=== PATIENT | male | born 1970 | race Caucasian/White ===

== ENCOUNTER → 2020-03-09 | Outpatient (CLI) | payer OTHER ==
[~2020-03-09] MED LIST: ADULT LOW DOSE81 MG PO; DICLOFENAC SODI75 MG PO; FAMOTIDINE20 MG PO; HYDROCHLOROTHIA50 MG PO; LOSARTAN POTAS100 MG PO; METFORMIN HCL500 M2 PO; METOPROLOL TART25 MG PO; PAIN RELIEVER650 MG PO; PANTOPRAZOLE SO20 MG PO; PRAVASTATIN SOD80 MG PO; VIAGRA100 MG PO; VITAMIN D21250 MCG PO
== END ==
LOC: KOH-I 15:09
DX: M77.31 Calcaneal spur, right foot (principal)
CPT/HCPCS: 73630; 73650

== ENCOUNTER → 2020-04-06 | Outpatient (CLI) | payer OTHER | LOC: KOH-I 13:00 | DX: Z01.818 Encounter for other preprocedural examination (principal); M77.31 Calcaneal spur, right foot; M76.61 Achilles tendinitis, right leg; M77.51 Other enthesopathy of right foot and ankle | CPT/HCPCS: 73718; 93926 ==

== ENCOUNTER → 2020-06-22 | Outpatient (CLI) | payer OTHER | LOC: OPSV2 08:00 | DX: Z01.812 Encounter for preprocedural laboratory examination (principal); M21.6X1 Other acquired deformities of right foot; M67.971 Unspecified disorder of synovium and tendon, right ankle and foot; S92.001A Unspecified fracture of right calcaneus, initial encounter for closed fracture | CPT/HCPCS: 36415; 83036 ==

== ENCOUNTER → 2020-06-30 | Day surgery (SDC) | payer OTHER | END | disposition home or self-care (01) | LOC: OR 06:04 | DX: M89.9 Disorder of bone, unspecified (principal); S86.011A Strain of right Achilles tendon, initial encounter; G89.29 Other chronic pain; I10 Essential (primary) hypertension; E78.2 Mixed hyperlipidemia; G56.03 Carpal tunnel syndrome, bilateral upper limbs; F32.9 Major depressive disorder, single episode, unspecified; N52.9 Male erectile dysfunction, unspecified; E11.9 Type 2 diabetes mellitus without complications; K21.9 Gastro-esophageal reflux disease without esophagitis; G25.81 Restless legs syndrome; G47.30 Sleep apnea, unspecified; Z99.89 Dependence on other enabling machines and devices; Z87.891 Personal history of nicotine dependence; Z79.82 Long term (current) use of aspirin; Z79.84 Long term (current) use of oral hypoglycemic drugs; Z79.899 Other long term (current) drug therapy; X58.XXXA Exposure to other specified factors, initial encounter | CPT/HCPCS: 73630; 73650; 82962; C1713; J0690; J1100; J1885; J2001; J2250; J2370; J2405; J2704; J2710; J2795; J3010; J3370; J7030; J7120; Q4133 ==